=== PATIENT | female | born 1990 | race Two or more races ===

== ENCOUNTER → 2018-01-07 | Outpatient (CLI) | payer BC ==
[~2018-01-07] MED LIST: NIF10C PO
[2018-01-07 10:20] LABS: Basophils # (auto) 0 uL; Eosinophils # (auto) 0.1 uL; Lymphocytes # (auto) 1.4 uL; Monocytes # (auto) 0.3 uL; Nucleated Red Blood Cells % 0.1 %
[2018-01-07 10:21] LABS: Basophils % (auto) 0.4 % (0.0-2.0); Eosinophils % (auto) 0.6 % (0.0-7.0); Hematocrit 36.3 % (36.0-46.0); Hemoglobin 12.4 g/dL (12.2-16.2); Mean Corpuscular Hemoglobin 27.3 pg (28.0-32.0); Mean Corpuscular Hgb Conc. 34.1 g/dL (32.0-36.0); Monocytes % (auto) 3.8 % (0.0-12.0); Neutrophils # (auto) 6.4 uL; Neutrophils % (auto) 78.2 % (37.0-80.0); Platelet Count (auto) 194 10^3/uL (140-450); Red Blood Cells 4.54 10^6/uL (4.0-5.20); Red Cell Distribution Width 14.8 % (11.8-14.3); White Blood Cell 8.2 10^3/uL (4.4-10.8)
== END | disposition home or self-care (01) ==
LOC: LAB 09:59
PROVIDERS: ATTEND Obstetrics & Gynecology
DX: O99.810 Abnormal glucose complicating pregnancy (principal); Z3A.00 Weeks of gestation of pregnancy not specified
CPT/HCPCS: 36415; 82951; 83036; 85025

== ENCOUNTER 2019-10-25 12:25 | Inpatient (IN) | payer BC, MEDICAID ==
[~2019-10-25] VITALS: Ht 162.6 cm; Wt 90.7 kg
[2019-10-25] MEDS ORDERED: LACT. RINGERS/OXYTOCIN 20UNITS 1,000 ML IV SCH ×2 (14:01→19:01)
[2019-10-25] MEDS ORDERED: LACTATED RINGER'S 1,000 ML IV SCH (14:01)
[2019-10-25] MEDS ORDERED: METHYLERGONOVINE MALEATE 0.2 MG/ML AMP IM PRN (14:15)
[2019-10-25] MEDS ORDERED: PENICILLIN G POT 5MIL/D5 50ML 50 ML IV ONE (14:15)
[2019-10-25] MEDS ORDERED: LIDOCAINE 2%HCL (LOCAL ANESTH.) INJ 20ML MDV ID PRN (14:15)
[2019-10-25 14:55] LABS: Basophils # (auto) 0 10 ^3/uL (0-0.2); Basophils % (auto) 0.4 % (0.0-2.0); Eosinophils # (auto) 0 10 ^3/uL (0-0.8); Eosinophils % (auto) 0.3 % (0.0-7.0); Lymphocytes # (auto) 1.7 10 ^3/uL (0.4-5.4); Monocytes # (auto) 0.4 10 ^3/uL (0-1.3); Neutrophils % (auto) 79.3 % (37.0-80.0)
[2019-10-25 14:57] LABS: Hemoglobin 12.5 g/dL (12.2-16.2); Lymphocytes % (auto) 16.4 % (10.0-50.0); Mean Corpuscular Hemoglobin 24.8 pg (28.0-32.0); Mean Corpuscular Hgb Conc. 32.8 g/dL (32.0-36.0); Mean Corpuscular Volume 75.4 fL (80.0-100.0); Monocytes % (auto) 3.6 % (0.0-12.0); Platelet Count (auto) 240 10^3/uL (140-450); Red Blood Cells 5.04 10^6/uL (4.0-5.20); Red Cell Distribution Width 16.3 % (11.8-14.3); White Blood Cell 10.1 10^3/uL (4.4-10.8)
[2019-10-25 15:06] LABS: INR 0.95 (0.9-1.15); Partial Thromboplastin Time 28.4 sec (23.64-32.05)
[2019-10-25 15:10] LABS: Albumin 2.7 g/dL (3.4-5.0); Calcium 9.4 mg/dL (8.5-10.1); Potassium 3.9 mmol/L (3.5-5.1)
[2019-10-25 15:10] LABS: Alcohol, Urine < 3.0 mg/dL (0-5); Amphetamine Screen, Urine NEGATIVE (NEGATIVE); Barbiturate Scree,Urine NEGATIVE (NEGATIVE); Benzodiazephine Screen, Urine NEGATIVE (NEGATIVE); Cannabinoid Screen, Urine NEGATIVE (NEGATIVE); Cocaine Screen, Urine NEGATIVE (NEGATIVE); Opiate Scree,Urine NEGATIVE (NEGATIVE); Phencyclidine Screen, Urine NEGATIVE (NEGATIVE)
[2019-10-25 15:14] LABS: BUN/Creatinine Ratio 18.5; Bilirubin, Total 0.4 mg/dL (0.2-1.0); Total Protein 7.9 g/dL (6.4-8.2); Uric Acid 5.8 mg/dL (2.6-6.0)
[2019-10-25] MEDS: DERMOPLAST 60ML BOTTLE TOP PRN ×2 (15:31→17:23)
[2019-10-25] MEDS: PHISODERM TOP SOLN 240ML BTL TOP PRN ×2 (15:31→17:23)
[2019-10-25] MEDS: WITCH HAZEL-GLYCERIN PAD TOP PRN ×2 (15:31→17:23)
[2019-10-25 15:33] LABS: Urine Bacteria FEW /hpf (None Seen); Urine Blood Negative /uL (Negative); Urine Mucus FEW (None Seen); Urine Specific Gravity 1.025 (1.001-1.035); Urine WBC 2 /hpf (0 - 5)
[2019-10-25] MEDS ORDERED: LACT. RINGERS/OXYTOCIN 20UNITS 500 ML IV ONE (18:01)
[2019-10-25] MEDS ORDERED: PENICILLIN G POTASSIUM 2,500,000 UNITS in D5W 5% 50 ML IV SCH (18:15)
[2019-10-25] MEDS ORDERED: ACETAMINOPHEN 325 MG TAB PO PRN (18:15)
[2019-10-25 23:00] VITALS: BP 108/64
[2019-10-26 02:53] VITALS: BP 127/58
[2019-10-26 05:09] LABS: RPR Non Reactive (Non Reactive)
[2019-10-26 07:30] VITALS: BP 124/73
[2019-10-26] MEDS: IBUPROFEN 600 MG TAB PO PRN ×2 (08:56→15:11)
[2019-10-26 11:00] VITALS: BP 102/55
[2019-10-26 11:36] VITALS: BP 102/55
[2019-10-26 14:55] VITALS: BP 108/55
[2019-10-26] MEDS ORDERED: PREN-145 PO (16:16)
[2019-10-26 19:09] VITALS: BP 115/60
== END 2019-10-26 20:28 | disposition home or self-care (01) | DRG 560 ==
LOC: LDRP 12:25 → OBSVTOIN 14:00 → LDRP 14:30
PROVIDERS: ADMIT Obstetrics & Gynecology; ATTEND Obstetrics & Gynecology
PROC: 10E0XZZ Delivery of Products of Conception, External Approach (ICD-10-PCS; principal; 2019-10-25)
DX: O99.345 Other mental disorders complicating the puerperium (principal); F53.0 Postpartum depression; Z37.0 Single live birth; Z3A.38 38 weeks gestation of pregnancy
CPT/HCPCS: 36415; 59025; 59409; 80053; 80307; 81001; 81002; 84112; 84550; 85025; 85610; 85730; 86592; 86703; 86762; 86850; 86900; 86901; 87340; 96365; 96366; G0378; J2540; J2590; J7060